=== PATIENT | male | born 1990 | race African-American/Black ===

== ENCOUNTER 2016-11-26 05:03 | Emergency (ER) | payer OTHER ==
[~2016-11-26] VITALS: Ht 182.9 cm; Wt 77.1 kg
[~2016-11-26 05:03] MED LIST: AMOXICILLIN 50500 M1 PO; IBUPROFEN 600600 M1 PO; IBUPROFEN 800800 M1 PO; NOHOMEMEDICATIONS; NORCO 5-325 TA1 EACH PO
[2016-11-26] MEDS ORDERED: SENOKOT-S1 TA1 PO (06:16)
[2016-11-26] MEDS ORDERED: NORCO 5-325 TA1 EACH PO (06:16)
[2016-11-26 06:38] VITALS: BP 124/76
== END 2016-11-26 06:44 ==
LOC: ER 05:03
DX: K08.89 Other specified disorders of teeth and supporting structures (principal); F15.10 Other stimulant abuse, uncomplicated

== ENCOUNTER 2017-02-01 18:08 | Emergency (ER) | payer OTHER ==
[~2017-02-01] VITALS: Ht 182.9 cm; Wt 72.6 kg
[~2017-02-01 18:08] MED LIST changes: +SENOKOT-S1 TA1 PO
[2017-02-01 18:25] LABS: HEMATOCRIT 40.9 % (42.0-52.0); HEMOGLOBIN 13.8 gm/dL (14.0-18.0); MANUAL DIFF YES; MCHC 33.7 g/dL (28.0-37.0); MCV 85.9 fL (80.0-100.0); PLATELET COUNT 212 thou/uL (150-400); RBC 4.76 mil/uL (4.50-6.00); RDW 13.7 % (10.5-14.5); WBC 7.5 thou/uL (4.0-11.0)
[2017-02-01 18:45] LABS: ABSOLUTE NEUTROPHILS 3.2 thou/uL (1.4-8.2); ANISOCYTOSIS 1+; POLYCHROMASIA OCCASIONAL; TOTAL CELL COUNT 100
[2017-02-01] MEDS ORDERED: TIZANIDINE HCL4 MG PO (19:25)
[2017-02-01] MEDS ORDERED: IBUPROFEN 600600 M1 PO (19:25)
[2017-02-01 19:51] VITALS: BP 115/78
== END 2017-02-01 19:54 | disposition home or self-care (01) ==
LOC: ER 18:08
PROVIDERS: Nurse Practitioner
DX: S01.81XA Laceration without foreign body of other part of head, initial encounter (principal); F15.10 Other stimulant abuse, uncomplicated; V89.2XXA Person injured in unspecified motor-vehicle accident, traffic, initial encounter; Y93.89 Activity, other specified; Y92.89 Other specified places as the place of occurrence of the external cause; Y99.8 Other external cause status

== ENCOUNTER 2017-02-08 12:51 | Emergency (ER) | payer OTHER ==
[~2017-02-08] VITALS: Ht 182.9 cm; Wt 72.6 kg
[~2017-02-08 12:51] MED LIST changes: +TIZANIDINE HCL4 MG PO
[2017-02-08 12:53] VITALS: BP 109/68
== END 2017-02-08 14:04 | disposition home or self-care (01) ==
LOC: ER 12:51
DX: S01.81XD Laceration without foreign body of other part of head, subsequent encounter (principal); Z98.890 Other specified postprocedural states; X58.XXXD Exposure to other specified factors, subsequent encounter; Y92.89 Other specified places as the place of occurrence of the external cause; Y99.8 Other external cause status

== ENCOUNTER 2017-06-07 17:26 | Emergency (ER) | payer OTHER ==
[~2017-06-07] VITALS: Ht 180.3 cm; Wt 78.5 kg
[2017-06-07 17:30] VITALS: BP 116/77
[2017-06-07] MEDS ORDERED: TRAMADOL 50 MG50 MG PO (18:23)
[2017-06-07] MEDS ORDERED: CYCLOBENZAPRINE5 MG PO (18:23)
== END 2017-06-07 18:34 | disposition home or self-care (01) ==
LOC: ER 17:26
DX: S46.912A Strain of unspecified muscle, fascia and tendon at shoulder and upper arm level, left arm, initial encounter (principal); S60.221A Contusion of right hand, initial encounter; W22.8XXA Striking against or struck by other objects, initial encounter; Y93.89 Activity, other specified; Y92.89 Other specified places as the place of occurrence of the external cause; Y99.8 Other external cause status